=== PATIENT | male | born 1990 | race Caucasian/White ===

== ENCOUNTER 2024-07-16 08:17 | Emergency (ER) | payer BC, SELFPAY ==
[2024-07-16 08:19] VITALS: BP 136/82; PULSE 80; RESP 17; TEMP 36.7; O2SAT 100; BMI 34.2
--- NOTE | 2024-07-16 08:38 | PD.EDRME ---
Rapid Medical Screening Exam RME Arrival date/time: 07/16/24 08:17 34-year-old male presents emergency department complaints of left lower quadrant abdominal pain x 1 night. No nausea no vomiting no fever. I have greeted and performed a focused initial assessment of this patient. Initial appropriate labs ordered at this time. A comprehensive ED assessment and evaluation of the patient and analysis of all test and completion of medical decision making process will be conducted by additional ED provider. Chief Complaint: Abdominal Pain Time Seen by Provider: 07/16/24 08:32 Vital signs: Vital Signs Temperature 98.0 F 07/16/24 08:19 Pulse Rate 80 07/16/24 08:19 Respiratory Rate 17 07/16/24 08:19 Blood Pressure 136/82 H 07/16/24 08:19 Pulse Oximetry (%) 100 07/16/24 08:19 Oxygen Delivery Method Room Air 07/16/24 08:19
[2024-07-16 08:47] LABS: Collection Type, Urine Catheter
[2024-07-16 08:53] LABS: Bilirubin,Urine Negative (Negative); Blood,Urine Negative (Negative); Clarity,Urine Clear (Clear/Hazy); Color,Urine Lt-Yellow (Lt Yel-Yel); Glucose, Urine Negative (Negative); Ketones,Urine Negative (Negative); Leukocyte Esterase,Urine Negative (Negative); Nitrite,Urine Negative (Negative); Protein,Urine Trace (Neg - Trace); RBC,Urine 1 /hpf (0-3); Specific Gravity,Urine 1.024 (1.001-1.035); Squamous Epithelial Cell,Urine < 1 /hpf (0-5); Urobilinogen,Urine Negative mg/dL (0.0-1.0); WBC,Urine 1 /hpf (0-5)
[2024-07-16 09:20] LABS: Basophils % (Auto) 0 % (0-2.5); Eosinophils % (Auto) 0 % (0-10); Hematocrit 43.9 % (41.0-53.0); Hemoglobin 15.1 g/dL (13.5-16.0); Immature Granulocytes % (Auto) 0 % (0-0); Immature Granulocytes Auto 0.02 Thou/mm3 (0.00-0.00); Lymphocytes # (Auto) 1.2 Thou/mm3 (1.0-4.8); Lymphocytes % (Auto) 21 % (10-50); Mean Corpuscular HGB Conc 34.4 g/dl (31.0-37.0); Mean Corpuscular Hemoglobin 29.6 pg (25.0-35.0); Mean Corpuscular Volume 86 fL (80-100); Monocytes # (Auto) 0.4 Thou/mm3 (0.0-0.8); Monocytes % (Auto) 6 % (0-12); Neutrophils % (Auto) 72 % (37-80); Nucleated Red Blood Cell % 0 /100 WBC (0); Platelet Count 221 Thou/mm3 (140-440); RDW Standard Deviation 36.9 fL (35.1-43.9); White Blood Count 5.6 Thou/mm3 (3.8-10.6)
[2024-07-16 09:36] LABS: Alanine Aminotransferase 12 U/L (10-49); Albumin, Serum 4.6 gm/dL (3.5-5.0); Albumin/Globulin Ratio 1.6 (1.2-2.2); Alkaline Phosphatase 77 U/L (46-116); Anion Gap 3 (7-16); Aspartate Amino Transferase 12 U/L (0-34); BUN/Creatinine Ratio 12 Ratio (12-20); Bilirubin,Total 0.5 mg/dL (0.3-1.2); Blood Urea Nitrogen 12 mg/dL (9-23); Calcium 9.4 mg/dL (8.3-10.6); Calcium (Corrected) 9.4 mg/dL (8.5-10.1); Carbon Dioxide 30.3 mMol/L (20.0-31.0); Chloride 107 mMol/L (98-107); Estimated Creatinine Clearance 129.5 mL/min (>60); Globulin 2.8 gm/dL (2.3-3.5); Glucose 113 mg/dL (74-106); Lipase 39 U/L (12-53); Osmolality,Calculated 280 (275-295); Potassium 4.1 mMol/L (3.4-5.1); Sodium 140 mMol/L (136-145); Total Protein 7.4 gm/dL (5.7-8.2); eGFR > 60 See Note
--- NOTE | 2024-07-16 10:02 | XR_ITS ---
Examination: Abdomen AP single view Technique: AP portable supine abdomen, single view Exam date and time: July 16, 2024 1011 hours INDICATIONS: Left-sided abdominal pain today. FINDINGS: Nonobstructive bowel gas pattern. Minimal air distended small bowel loops No free air The osseous structures are intact IMPRESSION: Minimal left abdomen small bowel ileus
[2024-07-16 10:18] VITALS: BP 135/85; PULSE 74; RESP 20; TEMP 36.7; O2SAT 100
--- NOTE | 2024-07-16 10:35 | XR_ITS ---
Examination: CT abdomen and pelvis without contrast. Coronal 3-D reconstructions. Sagittal 2-D reconstructions. Date and time of exam:July 16, 2024 at 1045 hours INDICATIONS: Sharp left-sided flank pain onset today CTDI: vol (mGy): 10.4 DLP: (mGycm): 657 Technique: Axial images of the abdomen have been obtained, 3 mm slice thickness Intravenous contrast material has not been administered. Low dose protocols were performed. One or more of the following dose reduction techniques were used; automated exposure control, adjustment of the mA and/or KV according to patient size, use of iterative reconstruction technique. Findings: No focal liver or splenic lesions No gallstones No pancreatic or adrenal mass No renal or ureteral calculi, no hydronephrosis Mild bilateral renal parenchymal scar formation No perinephric stranding Aorta normal size No pericecal inflammatory change 8mm fat-containing umbilical hernia No bowel obstruction No diverticulitis Normal seminal vesicles Normal prostate No bladder mass or bladder calculi IMPRESSION: No renal or ureteral calculi, no hydronephrosis Mild bilateral renal parenchymal scar formation No bladder mass or bladder calculi
--- NOTE | 2024-07-16 11:01 | EDNOTE_ITS ---
ED Abdominal Pain RME/HPI General Chief Complaint: Abdominal Pain Stated complaint: SHARP LEFT ABD PAIN X AM Time seen by provider: 07/16/24 08:32 Arrival date/time: 07/16/24 08:17 RME / HPI RME / HPI narrative: 07/16/24 08:17 34-year-old male and no case of any medical condition presented to the ED due to sharp abdominal pain located in the left flank radiating to the inguinal area, the pain is 9 out of 10 with no change in character of pain with change of position or eating. Patient denied any nausea or vomiting, denied any fever or chills, denied any urinary tract symptoms. Patient reported few days ago had similar pain however it was milder and it went away by itself. Patient denied any past history of kidney stones however he mentioned that he has family history of kidney stones specially in his father. Related Data Previous Rx's ?Medication ?Instructions ?Recorded clindamycin HCl 300 mg capsule 300 mg PO QID #28 caps 08/31/18 Allergies Allergy/AdvReac Type Severity Reaction Status Date / Time No Known Allergies Allergy Verified 07/16/24 08:18 ED Exam Narrative Physical exam: GEN: AOx3, able to speak full sentences HEENT: NC/AC, oral mucosa moist, neck supple CVS: RRR, S1-S2 present, no murmurs appreciated RESP: CTAB GI: soft,non distended, non tender, NBS MSK: able to move all 4 limbs, no lower extremity edema SKIN: warm and dry ANALYSIS REPORTING DEVELOPER: CN II-XII and Sensation grossly intact. Course Quality Measures none Orders Category Date Time Status CT abdomen pelvis wo con Stat Exams 07/16/24 10:35 Completed XR abdomen 1V Stat Exams 07/16/24 10:02 Completed CBC Stat Lab 07/16/24 08:58 Completed Comprehensive Metabolic Panel Stat Lab 07/16/24 08:58 Completed Lipase Stat Lab 07/16/24 08:58 Completed Urinalysis Stat Lab 07/16/24 08:41 Completed Ketorolac Inj [Toradol Inj] Med 07/16/24 10:35 Discontinued 30 mg IVP X1 ONE Vital Signs Vital signs: Vital Signs Temperature 98.0 F 07/16/24 08:19 Pulse Rate 80 07/16/24 08:19 Respiratory Rate 17 07/16/24 08:19 Blood Pressure 136/82 H 07/16/24 08:19 Pulse Oximetry (%) 100 07/16/24 08:19 Oxygen Delivery Method Room Air 07/16/24 08:19 Abdominal Pain MDM MDM Narrative MDM Narrative:: On evaluation patient was found to be vitally stable, no fever or chills, CT scan was negative for any kidney stones or stranding, no urinary tract symptoms. Patient most likely passed a small kidney stone that at this time showed no radiological evidence. For that reason we will discharge the patient on ibuprofen 400 mg 3 times daily as needed. Patient data External records reviewed:: [facility] previous records Clinical information provided by:: patient Social determinants that could affect healthcare access:: none Patient has the following chronic illnesses:: None How is presenting disease/condition affected by chronic disease/condition?: no chronic disease Evaluation data The following diagnostics were reviewed and interpreted by me:: lab results and radiology exam(s) Lab and/or radiology exams considered but not ordered:: none Interpretation Summary: Renal colic, colitis, UTI, muscle strain Medications / Prescriptions Medications or Prescriptions considered but not ordered:: None Medication administrations:: Medication Administration History Discontinued Medications Ketorolac Tromethamine (Ketorolac Inj 30 Mg/Ml Vial) 30 mg IVP X1 ONE Stop: 07/16/24 10:36 Last Admin: 07/16/24 11:05 Dose: 30 mg Documented By: DB As above left given Consultations Consultation(s) initiated? (list below): No Diagnosis Differential diagnosis abdominal pain: abdominal pain, calculus of kidney, diverticulitis, small bowel obstruction and other (Renal colic) Most likely diagnosis given after review of the tests above:: Renal colic Admission Indicated Admission indicated?: not indicated Admission Request Was there a request for admission?: No Disposition Plan Disposition Plan: Discharge Discharge Attestation Discharge Attestation: The patient and all family members were given an opportunity to ask questions and understood the discharge instructions. Discharge instructions specifically effects, indications for sooner follow up or return to the emergency department, and the expected course of current diagnosis. Patient condition: Stable Discharge Plan Plan Patient Disposition: HOME (Self Care) Health Concerns: Use ibuprofen 400 mg 3 times daily as needed Follow-up with your primary care physician within 1 week from discharge Use medications as prescribed Increase your fluid intake and avoid dehydration. Prescriptions/Referrals Prescriptions/Med Rec: No Action clindamycin HCl 300 mg capsule 300 mg PO QID Qty: 28 0RF Referrals: Joann Morrison MD [Primary Care Provider] - In 1 week Problem List Clinical Impression: Renal colic Patient/Caregiver Discharge Instructions Print Language: Irish Stand Alone Forms: [facility] Award Info., Patient Portal Info Letter
[2024-07-16] MEDS: KETOROLAC INJ 30 MG/ML VIAL IVP (11:05)
== END 2024-07-16 12:30 | disposition home or self-care (01) ==
PROVIDERS: Nurse Practitioner Primary Care; Emergency Provider Emergency Medicine; PCP Internal Medicine
DX: N23 Unspecified renal colic (principal)
CPT/HCPCS: 36415; 74018; 74176; 80053; 81001; 83690; 85025; 96374; 99284; J1885